=== PATIENT | female | born 1980 | race Caucasian/White ===

== ENCOUNTER 2018-09-07 12:05 | Emergency (ER) | payer MEDICAID ==
--- NOTE | 2018-09-07 12:28 | ED Physician Chart ---
ED Chief Complaint/HPI - Patient Information Date Seen:: 09/07/18 Time Seen:: 12:20 Chief Complaint:: cough History of Present Illness:: Patient's had a cough productive of yellow sputum for last 2 weeks. No fever. She does have paroxysms of cough terminating with a deep inspiration. Last tetanus booster was about 2 years ago. Allergies:: Allergies Allergy/AdvReac Type Severity Reaction Status Date / Time No Known Allergies Allergy Verified 09/07/18 12:12 Historian:: Patient Review:: Nurse's Note Reviewed ED Review of Systems - Review of Systems General/Constitutional: No fever, No chills Skin: No skin lesions Head: No headache Eyes: No loss of vision ENT: No earache Neck: No neck pain Cardio Vascular: No chest pain Pulmonary: Cough, Sputum GI: No nausea, No vomiting, No diarrhea G/U: No dysuria Musculoskeletal: No bone or joint pain Endocrine: No polyuria Psychiatric: No prior psych history, No depression ED Past Medical History - Past Medical History Past Medical History: No significant medical hx Family History: HTN, Cancer, Other (asthma) Social History: Non Smoker, No Alcohol, No Drug Use Surgical History: None Psychiatricy History: None Medication: None Family Medical History - Family Member Mother History Unknown: Yes ED Physical Exam - Physical Examination General/Constitutional: Well-developed, well-nourished, Alert, No distress Head: Atraumatic Eyes: Lids, conjuctiva normal, PERRL Skin: Nl inspection, No rash, No skin lesions, No ecchymosis ENMT: External ears, nose nl, TM canals nl, Nasal exam nl, Lips, teeth, gums nl , Oropharynx nl, Tonsils nl Neck: No nuchal rigidity Respiratory: Nl effort/Exclusion, Clear to Auscultation Cardio Vascular: RRR, No murmur, gallop, rubs, NL S1 S2 GI: No tenderness/rebounding/guarding, No organomegaly, Nondistended : No CVA tenderness Extremities: Normal digits & nails Neuro/Psych: No focal deficits Misc: Normal back ED Assessment - Assessment General Assessment: Patient's paroxysms of cough with a deep inspiration at the end is suggestive of pertussis although if she did have a tetanus booster within the last 2 years the likelihood of pertussis is decreased. If patient has had pertussis for 2 weeks the antibiotics will probably not decrease the length of the illness but should make her noncontagious. ED Septic Shock - . Is Septic Shock (SBP<90, OR Lactate>4 mmol\L) present?: No ED Reassessment (Disposition) - Reassessment Reassessment Condition:: Unchanged - Diagnosis Diagnosis:: Bronchitis, possible pertussis - Aftercare/Follow up Instructions Aftercare/Follow-Up Instructions:: Refer to Discharge Instructions - Patient Disposition Discharge/Transfer:: Home Condition at Disposition:: Stable, Unchanged
== END 2018-09-07 12:30 | disposition home or self-care (01) ==
LOC: ER 12:05
DX: J40 Bronchitis, not specified as acute or chronic (principal)
CPT/HCPCS: Z7502